=== PATIENT | male | born 1955 | race African-American/Black ===

== ENCOUNTER 2016-05-06 14:07 | Observation (INO) | payer OTHER ==
--- NOTE | 2016-05-06 17:13 | VASCULAR PRELIM REPORT ---
Provider Note Provider Note: Negative for DVT, discussed with Dr Sears at 1800.
[2016-05-06] MEDS: CLINDAMYCIN 600 MG/D5W RTU 600 MG/50 ML RTUPB IV SCH (17:23)
[2016-05-06 17:29] LABS: ABSOLUTE EOSINOPHILS # (AUTO) 0.1 10^3/uL (0.0-0.6); ABSOLUTE LYMPHOCYTES (AUTO) 1.1 10^3/uL (0.5-4.7); ABSOLUTE MONOCYTES (AUTO) 0.5 10^3/uL (0.1-1.4); ABSOLUTE NEUT (AUTO) 3.4 10^3/uL (1.7-8.2); BASOPHILS % (AUTO) 0.6 % (0-2); EOSINOPHILS % (AUTO) 2.2 % (0-6); HEMATOCRIT 34.5 % (37.9-51.0); HEMOGLOBIN 11.1 g/dL (13.5-17.0); HGB HCT DIFFERENCE -1.2; LYMPHOCYTES % (AUTO) 21.6 % (13-45); MEAN CORPUSCULAR HEMOGLOBIN 25.6 pg (27.0-33.4); MEAN CORPUSCULAR HGB CONC 32.3 g/dL (32.0-36.0); MEAN CORPUSCULAR VOLUME 79 fl (80-97); RED BLOOD COUNT 4.35 10^6/uL (4.35-5.55); RED CELL DISTRIBUTION WIDTH 15.1 % (11.5-14.0); SEGMENTED NEUTROPHILS % (AUTO) 66.6 % (42-78); WHITE BLOOD COUNT 5.1 10^3/uL (4.0-10.5)
[2016-05-06 17:41] LABS: ALANINE AMINOTRANSFERASE 35 U/L (21-72); ALBUMIN 3.7 g/dL (3.5-5.0); ALKALINE PHOSPHATASE 63 U/L (38-126); ANION GAP 10 (5-19); ASPARTATE AMINO TRANSFERASE 24 U/L (17-59); BILIRUBIN,TOTAL 0.4 mg/dL (0.2-1.3); BLOOD UREA NITROGEN 18 mg/dL (7-20); CALCIUM 9.8 mg/dL (8.4-10.2); CARBON DIOXIDE 28 mmol/L (22-30); CHLORIDE 102 mmol/L (98-107); CREATININE RESULT 0.95 mg/dL (0.52-1.25); GLUCOSE 84 mg/dL (75-110); POTASSIUM 4.3 mmol/L (3.6-5.0); SODIUM 140.2 mmol/L (137-145); TOTAL PROTEIN 7.1 g/dL (6.3-8.2)
[2016-05-06 18:07] LABS: ERYTHROCYTE SEDIMENTATION RATE 38 mm/hr (0-20)
--- NOTE | 2016-05-06 19:55 | PDOC H&P ---
History of Present Illness Admission Date/PCP: 05/06/16 14:07 MERCEDES WAITE MD History of Present Illness: JOVITA TYLER is a 60 year old male . He came to the office this afternoon because of pain and swelling of the right leg for the last couple of days. He waited to see me today in the office because he does not want to go to the emergency room, and wait for hours. When I saw him in the office today there was swelling and redness of the right leg that suggest cellulitis, but I could not completely rule out a DVT and because is a diabetic with extensive cellulitis of his right leg, I thought that he needed to be admitted at least for observation, he was admitted directly from the office into the hospital for management of his symptoms. A venous Doppler was done today and it was negative for deep vein thromboses. Past Medical History Cardiac Medical History: Reports: Hyperlipidema, Hypertension Endocrine Medical History: Reports: Diabetes Mellitus Type 2 GI Medical History: Reports: Hiatal Hernia Past Surgical History Past Surgical History: Reports: Herniorrhaphy, Orthopedic Surgery - C-spine surgery Social History Smoking Status: Never Smoker Frequency of Alcohol Use: None Hx Recreational Drug Use: No Drugs: None Hx Prescription Drug Abuse: No Family History Family History: Reviewed & Not Pertinent Parental Family History Reviewed: Yes Children Family History Reviewed: Yes Sibling(s) Family History Reviewed.: Yes Medication/Allergy Home Medications: Aspirin [Aspirin 81 mg Chewable Tablet] 81 mg PO DAILY 05/06/16 Carvedilol [Coreg 25 mg Tablet] 1 tab PO Q12 05/06/16 Glipizide [Glipizide ER] 2.5 mg PO BID 05/06/16 Loratadine 10 mg PO DAILY 05/06/16 Losartan/Hydrochlorothiazide [Hyzaar 100-25 Tablet] 1 each PO DAILY 05/06/16 Metformin HCl [Glucophage] 1,000 mg PO BID 05/06/16 Polyethylene Glycol 3350 [Miralax Powder 17 gm/Packet] 1 packet PO DAILY Simvastatin [Zocor 20 mg Tablet] 20 mg PO QHS 05/06/16 Allergies/Adverse Reactions: No Known Allergies Allergy (Verified 03/06/16 09:31) Review of Systems Constitutional: ABSENT: chills, fever(s), headache(s), weight gain, weight loss Eyes: ABSENT: visual disturbances Ears: ABSENT: hearing changes Cardiovascular: ABSENT: chest pain, dyspnea on exertion, edema, orthropnea, palpitations Respiratory: ABSENT: cough, hemoptysis Gastrointestinal: ABSENT: abdominal pain, constipation, diarrhea, hematemesis, hematochezia, nausea, vomiting Genitourinary: ABSENT: dysuria, hematuria Integumentary: ABSENT: rash, wounds Neurological: ABSENT: abnormal gait, abnormal speech, confusion, dizziness, focal weakness, syncope Psychiatric: ABSENT: anxiety, depression, homidical ideation, suicidal ideation Endocrine: ABSENT: cold intolerance, heat intolerance, menstrual abnormalities, polydipsia, polyuria Hematologic/Lymphatic: ABSENT: easy bleeding, easy bruising, lymphadenopathy Physical Exam Vital Signs: Temp Pulse Resp BP Pulse Ox 97.6 F 80 18 146/84 H 100 05/06/16 15:15 05/06/16 15:15 05/06/16 15:15 05/06/16 15:15 05/06/16 15:15 General appearance: PRESENT: no acute distress, well-developed, well-nourished Head exam: PRESENT: atraumatic, normocephalic Eye exam: PRESENT: conjunctiva pink, EOMI, PERRLA Ear exam: PRESENT: normal external ear exam Mouth exam: PRESENT: moist, tongue midline Respiratory exam: PRESENT: clear to auscultation wesley Cardiovascular exam: PRESENT: RRR, +S1, +S2 Pulses: PRESENT: normal dorsalis pedis pul, +2 pedal pulses bilateral Vascular exam: PRESENT: normal capillary refill GI/Abdominal exam: PRESENT: normal bowel sounds, soft Rectal exam: PRESENT: deferred Extremities exam: PRESENT: other - There is extensive redness swelling of the right leg Neurological exam: PRESENT: alert, awake, oriented to person, oriented to place , oriented to time, oriented to situation, CN II-XII grossly intact Psychiatric exam: PRESENT: appropriate affect, normal mood Skin exam: PRESENT: dry, intact, warm Results Laboratory Results: 05/06/16 17:15 05/06/16 17:15 05/06/16 05/06/16 17:15 17:15 WBC 5.1 RBC 4.35 Hgb 11.1 L Hct 34.5 L MCV 79 L MCH 25.6 L MCHC 32.3 RDW 15.1 H Plt Count 189 Seg Neutrophils % 66.6 Lymphocytes % 21.6 Monocytes % 9.0 Eosinophils % 2.2 Basophils % 0.6 Absolute Neutrophils 3.4 Absolute Lymphocytes 1.1 Absolute Monocytes 0.5 Absolute Eosinophils 0.1 Absolute Basophils 0.0 Sodium 140.2 Potassium 4.3 Chloride 102 Carbon Dioxide 28 Anion Gap 10 BUN 18 Creatinine 0.95 Est GFR ( Amer) > 60 Est GFR (Non-Af Amer) > 60 Glucose 84 Calcium 9.8 Total Bilirubin 0.4 AST 24 ALT 35 Alkaline Phosphatase 63 Total Protein 7.1 Albumin 3.7 Assessment & Plan - Diagnosis (1) Cellulitis of leg, right Is this a current diagnosis for this admission?: YesPlan: Patient is admitted into the hospital and he is started on intravenous antibiotic, clindamycin (2) Diabetes mellitus type 2 in nonobese Is this a current diagnosis for this admission?: Yes
[2016-05-06] MEDS ORDERED: DEXTROSE 40% GEL 15 GM TUBE PO PRN ×2 (19:57)
[2016-05-06] MEDS ORDERED: INSULIN LISPRO 100 UNIT/ML 3 ML VIAL SUBCUT PRN (19:57)
[2016-05-06] MEDS ORDERED: GLUCAGON,HUMAN RECOMB 1 MG INJ IM PRN (19:57)
[2016-05-06] MEDS ORDERED: DEXTROSE 50%-WATER 25 GM/50 ML DISP.SYRIN IV PRN ×2 (19:57)
[2016-05-06] MEDS ORDERED: CLINDAMYCIN 600 MG/D5W RTU 50 ML IV SCH (20:00)
[2016-05-06] MEDS ORDERED: (PENDING PHARMACY ID) (Carvedilol [Coreg 25 Mg Tablet] 1 TAB) PO SCH (20:00)
[2016-05-06] MEDS ORDERED: (PENDING PHARMACY ID) (Losartan/Hydrochlorothiazide [Hyzaar 100-25 Tablet] 1 EACH) PO SCH (20:00)
[2016-05-06 20:04] LABS: APPEARANCE,URINE CLEAR; BILIRUBIN,URINE NEGATIVE (NEGATIVE); GLUCOSE, URINE NEGATIVE (NEGATIVE); KETONES,URINE NEGATIVE (NEGATIVE); LEUKOCYTE ESTERASE,URINE NEGATIVE (NEGATIVE); NITRITE,URINE NEGATIVE (NEGATIVE); PROTEIN,URINE NEGATIVE (NEGATIVE); URINE SPECIFIC GRAVITY 1.015
[2016-05-06 20:19] LABS: PARTIAL THROMBOPLASTIN TIME 26.5 SEC (23.5-35.8)
[2016-05-06] MEDS ORDERED: LORATADINE 10 MG TABLET PO ONE (21:00)
[2016-05-06] MEDS ORDERED: GLIPIZIDE XL 2.5 MG TAB.ER.24 PO ONE (21:00)
[2016-05-06] MEDS ORDERED: POLYETHYLENE GLYCOL 3350 POWDER 17 GM/1 PACKET PO ONE (21:00)
[2016-05-06] MEDS ORDERED: ASPIRIN 81 MG TABLET, CHEWABLE PO ONE (22:00)
[2016-05-06] MEDS ORDERED: LOSARTAN POTASSIUM 50 MG TABLET PO ONE (22:00)
[2016-05-06] MEDS ORDERED: HYDROCHLOROTHIAZIDE 25 MG TABLET PO ONE (22:00)
[2016-05-06] MEDS: CARVEDILOL 12.5 MG TABLET PO SCH (22:19)
[2016-05-06] MEDS: SIMVASTATIN 10 MG TABLET PO SCH (23:09)
[2016-05-07] MEDS: CLINDAMYCIN 600 MG/D5W RTU 600 MG/50 ML RTUPB IV SCH ×5 (00:26→23:15)
[2016-05-07] MEDS: METFORMIN HCL 500 MG TABLET PO SCH ×2 (07:46→15:17)
[2016-05-07] MEDS: ENOXAPARIN SODIUM INJ 40 MG/0.4 ML DISP.SYRIN SUBCUT SCH (07:46)
--- NOTE | 2016-05-07 08:20 | Physician Advisory Note ---
Physician Advisor ProgressNote .: [facility], I have reviewed the medical record for this patient. Physician Advisor Statement: Possible documentation opportunities if attending agrees: 1. "chronic anemia, likely of nutritional Fe defic" (or chronic blood loss Fe defic, or ...) - Hgb 11.1 w/low MCV & high RDW. Status: 60yo with DM-2 & HTN came in with extensive RLE cellulitis, not already tx'd outpt & failing that. Afebrile, VSS except for mild HTN. No leukocytosis, A1C 7.6, ESR 38, glc's 80s-180s. Attending ordered IV Clinda, BC, ur cx, tele, venous dop. Appropriate for Outpt Obs, with expectation of likely prompt improvement with d/c home later today on po abx. If pt is clinically unsafe for d/c today, please document explicitly what keeps pt from being able to be managed outpt with close f/u, reasons that tx in inpatient hospital setting medically reasonable & necessary to protect pt's health, safety, & medical condition. Thanks for your help with documentation accuracy/specificity improvement! Cindy Grewal MD [facility] Physician Advisor, Fellow of Hospital Medicine
[2016-05-07] MEDS: CARVEDILOL 12.5 MG TABLET PO SCH ×2 (10:18→23:14)
[2016-05-07] MEDS: LOSARTAN POTASSIUM 50 MG TABLET PO SCH (10:19)
[2016-05-07] MEDS: ASPIRIN 81 MG TABLET, CHEWABLE PO SCH (10:20)
[2016-05-07] MEDS: HYDROCHLOROTHIAZIDE 25 MG TABLET PO SCH (10:20)
[2016-05-07] MEDS: LORATADINE 10 MG TABLET PO SCH (10:20)
[2016-05-07] MEDS: POLYETHYLENE GLYCOL 3350 POWDER 17 GM/1 PACKET PO SCH (10:21)
[2016-05-07] MEDS: GLIPIZIDE XL 2.5 MG TAB.ER.24 PO SCH ×2 (10:36→17:23)
--- NOTE | 2016-05-07 13:44 | XCELERA REPORT ---
[address] [address] Lower Extremity Venous Evaluation Name: JOVITA TYLER Age: 60 yrs Gender: Male : 1955 Patient Status: Inpatient Patient Location: \S\[facility]\S\A Study Date: 05/06/2016 04:51 PM Procedure: Color flow and duplex imaging of the veins of the right lower extremity as well as the left Common Femoral vein. Reason For Study: Cellulitis / swelling of the right leg r/o DVT Ordering Physician: MERCEDES WAITE Performed By: Francis Betts Right Sided Venous Evaluation Normal vessel filling wall to wall, compression and augmentation as well as Colour flow down to the infrageniculate veins. Left Sided Venous Evaluation The left common femoral vein is fully compressible. Spontaneous and phasic flow is present in the left common femoral vein. Critical Findings Per preliminary report. Interpretation Summary No duplex evidence of DVT or obstruction in the right lower extremity nor in the left Common Femoral vein. : MERCEDES WAITE > Tyree Zuñiga
--- NOTE | 2016-05-07 18:08 | PDOC DISCHARGE SUMMARY ---
General - Admit/Disc Date/PCP Admission Date/Primary Care Provider: 05/06/16 14:07 MERCEDES WAITE MD Discharge Date: 05/07/16 - Discharge Diagnosis (1) Cellulitis of leg, right Is this a current diagnosis for this admission?: Yes (2) Diabetes mellitus type 2 in nonobese Is this a current diagnosis for this admission?: Yes - Additional Information Discharge Diet: Diabetic Discharge Activity: Activity As Tolerated Home Medications: Aspirin [Aspirin 81 mg Chewable Tablet] 81 mg PO DAILY 05/06/16 Carvedilol [Coreg 25 mg Tablet] 1 tab PO Q12 05/06/16 Glipizide [Glipizide ER] 2.5 mg PO BID 05/06/16 Loratadine 10 mg PO DAILY 05/06/16 Losartan/Hydrochlorothiazide [Hyzaar 100-25 Tablet] 1 each PO DAILY 05/06/16 Metformin HCl [Glucophage] 1,000 mg PO BID 05/06/16 Polyethylene Glycol 3350 [Miralax Powder 17 gm/Packet] 1 packet PO DAILY Simvastatin [Zocor 20 mg Tablet] 20 mg PO QHS 05/06/16 Clindamycin HCl 300 mg PO Q8H #21 capsule 05/07/16 Hospital Course Hospital Course: Patient was admitted because of swelling, redness of the right lower extremity consistent with cellulitis that was a concern for deep vein thrombosis, venous Doppler was done and it was negative for DVT thrombosis. he was treated with IV antibiotic, clindamycin 6 MG IV every 8 Hhours There is improvement in patient's symptoms. The plan is for him to be discharged home, he was brought in for observation and management. Physical Exam Vital Signs: Temp Pulse Resp BP Pulse Ox 97.5 F 79 17 132/74 H 100 05/07/16 16:06 05/07/16 16:06 05/07/16 16:06 05/07/16 16:06 05/07/16 16:06 Intake & Output 05/06/16 05/07/16 05/08/16 06:59 06:59 06:59 Intake Total 640 1050 Output Total 300 Balance 340 1050 Weight 136.7 kg General appearance: PRESENT: no acute distress Eye exam: PRESENT: PERRLA Respiratory exam: PRESENT: clear to auscultation wesley Cardiovascular exam: PRESENT: +S1, +S2 GI/Abdominal exam: PRESENT: soft Extremities exam: PRESENT: other - There is improvement of the erythema of the right leg Neurological exam: PRESENT: alert, CN II-XII grossly intact Results Laboratory Results: 05/06/16 17:15 05/06/16 17:15 05/06/16 05/06/16 17:15 19:48 WBC 5.1 RBC 4.35 Hgb 11.1 L Hct 34.5 L MCV 79 L MCH 25.6 L MCHC 32.3 RDW 15.1 H Plt Count 189 Seg Neutrophils % 66.6 Lymphocytes % 21.6 Monocytes % 9.0 Eosinophils % 2.2 Basophils % 0.6 Absolute Neutrophils 3.4 Absolute Lymphocytes 1.1 Absolute Monocytes 0.5 Absolute Eosinophils 0.1 Absolute Basophils 0.0 Urine Color YELLOW Urine Appearance CLEAR Urine pH 5.0 Ur Specific Dexter 1.015 Urine Protein NEGATIVE Urine Glucose (UA) NEGATIVE Urine Ketones NEGATIVE Urine Blood NEGATIVE Urine Nitrite NEGATIVE Ur Leukocyte Esterase NEGATIVE Urine WBC (Auto) 0 Urine RBC (Auto) 1
[2016-05-07] MEDS: SIMVASTATIN 10 MG TABLET PO SCH (23:14)
[2016-05-08] MEDS: CLINDAMYCIN 600 MG/D5W RTU 600 MG/50 ML RTUPB IV SCH ×2 (06:32→12:01)
[2016-05-08] MEDS: METFORMIN HCL 500 MG TABLET PO SCH (08:42)
[2016-05-08] MEDS: ENOXAPARIN SODIUM INJ 40 MG/0.4 ML DISP.SYRIN SUBCUT SCH (08:42)
[2016-05-08] MEDS: LOSARTAN POTASSIUM 50 MG TABLET PO SCH (10:59)
[2016-05-08] MEDS: GLIPIZIDE XL 2.5 MG TAB.ER.24 PO SCH (10:59)
[2016-05-08] MEDS: CARVEDILOL 12.5 MG TABLET PO SCH (10:59)
[2016-05-08] MEDS: ASPIRIN 81 MG TABLET, CHEWABLE PO SCH (11:00)
[2016-05-08] MEDS: HYDROCHLOROTHIAZIDE 25 MG TABLET PO SCH (11:00)
[2016-05-08] MEDS: LORATADINE 10 MG TABLET PO SCH (11:00)
[2016-05-08] MEDS: POLYETHYLENE GLYCOL 3350 POWDER 17 GM/1 PACKET PO SCH (11:01)
[2016-05-08 12:43] VITALS: BP 137/79
== END 2016-05-08 16:50 | disposition home or self-care (01) ==
LOC: 4N 14:07
PROVIDERS: ADMIT Internal Medicine; ATTEND Internal Medicine
DX: L03.115 Cellulitis of right lower limb (principal); E11.9 Type 2 diabetes mellitus without complications; I10 Essential (primary) hypertension; E78.5 Hyperlipidemia, unspecified; Z79.84 Long term (current) use of oral hypoglycemic drugs
CPT/HCPCS: 36415; 87040; 87086; 82962 ×3; 85025; 85652; 85610; 85730; 80076; 80048; 81001; 83036; 93971 ×2; G0378 ×3; G0379; J3490 ×4; J1650 ×2

== ENCOUNTER 2016-06-21 22:39 | Observation (INO) | payer OTHER ==
--- NOTE | 2016-06-22 01:54 | ER Document Report ---
ED General - General Chief Complaint: Chest Pain Stated Complaint: CHEST PAIN Notes: Patient is a 60-year-old male who presents with complaint of intermittent chest pain. Says it's been ongoing for 2 days. He took 322 mg of aspirin before coming into the ER. He says that he does not have a history coronary disease. He had a stress test proximal me 2 years ago. He is followed by Dr. Sears. He says over last 2 days he still develops chest pain whenever he walks and exerts himself. This pain is nonradiating. He does feel short of breath when he gets the chest pain. When he sits down the chest pain goes away. He does have a history of hypertension, diabetes, obesity. He is currently chest pain- free being that he is at rest in the stretcher. No other complaints at this time. TRAVEL OUTSIDE OF THE [place] IN LAST 30 DAYS: No - Related Data Allergies/Adverse Reactions: No Known Allergies Allergy (Verified 03/06/16 09:31) Past Medical History - Social History Smoking Status: Never Smoker Frequency of alcohol use: None Drug Abuse: None Family History: Reviewed & Not Pertinent Patient has suicidal ideation: No Patient has homicidal ideation: No - Past Medical History Cardiac Medical History: Reports: Hx Hypercholesterolemia, Hx Hypertension Endocrine Medical History: Reports: Hx Diabetes Mellitus Type 2 Renal/ Medical History: Denies: Hx Peritoneal Dialysis GI Medical History: Reports: Hx Hiatal Hernia Past Surgical History: Reports: Hx Herniorrhaphy, Hx Orthopedic Surgery - C- spine surgery - Immunizations Hx Diphtheria, Pertussis, Tetanus Vaccination: Yes Hx Pneumococcal Vaccination: 08/21/13 Review of Systems - Review of Systems Notes: My Normal Review Basic REVIEW OF SYSTEMS: CONSTITUTIONAL : Denies fever, chills, or sweats. Denies recent illness. EENT: Denies eye, ear, throat, or mouth pain or symptoms. Denies nasal or sinus congestion. CARDIOVASCULAR: Had chest pain RESPIRATORY: Denies cough, cold, or chest congestion. Denies shortness of breath, difficulty breathing, or wheezing. SKIN: Denies rash or skin lesions. HEMATOLOGIC : Denies easy bruising or bleeding. NEUROLOGICAL: Denies altered mental status or loss of consciousness. Denies headache. Denies weakness or paralysis or loss of use of either side. Denies problems with gait or speech. Denies sensory or motor loss. ALL OTHER SYSTEMS REVIEWED AND NEGATIVE. Physical Exam - Vital signs Vitals: Temp Pulse Resp BP Pulse Ox 97.4 F 77 18 129/77 H 96 06/21/16 22:58 06/21/16 22:58 06/21/16 22:58 06/21/16 22:58 06/21/16 22:58 - Notes Notes: General Appearance: Well nourished, alert, cooperative, no acute distress, no obvious discomfort. Well-appearing. Vitals: reviewed, See vital signs table. Head: no swelling or tenderness to the head Eyes: PERRL, EOMI, Conjuctiva clear Mouth: No decreasd moisture Neck: Supple, no neck tenderness, No thyromegaly Lungs: No wheezing, No rales, No rhonci, No accessory muscle use, good air exchange bilaterally. Heart: Normal rate, Regular rythm, No murmur, no rub Chest wall: No reproducible tenderness to palpation of the chest wall. Abdomen: Normal BS, soft, No rigidity, No abdominal tenderness, No guarding, no rebound, no abdominal masses, no organomegaly Extremities: strength 5/5 in all extremities, good pulses in all extremities, no swelling or tenderness in the extremities, no edema. Skin: warm, dry, appropriate color, no rash Neuro: speech clear, oriented x 3, normal affect, responds appropriately to questions. Course - Vital Signs Vital signs: Temp Pulse Resp BP Pulse Ox 97.4 F 77 18 129/77 H 96 06/21/16 22:58 06/21/16 22:58 06/21/16 22:58 06/21/16 22:58 06/21/16 22:58 - Laboratory Result Diagrams: 06/22/16 02:30 06/22/16 02:30 Laboratory results interpreted by me: 06/22/16 06/22/16 02:30 02:30 Hgb 11.2 L Hct 34.6 L MCV 79 L MCH 25.6 L RDW 15.3 H Glucose 160 H Creatine Kinase 200 H - EKG Interpretation by Me Additional EKG results interpreted by me: 06/22/16 01:53 EKG is reviewed and interpreted by me. EKG shows normal sinus rhythm with rate of [address] segment elevation or depression. No ischemic T wave inversions. HI interval, QRS duration, QTC was are within normal range. Old EKG for comparison is from 03/05/2016. - Transfer of Care Notes: 06/22/16 03:17 Patient continues to be chest pain-free at rest. I'm concerned the fact that he 's had worsening for some chest pain over last 2 days and he did require nitroglycerin by the ambulance to take with chest pain. He also received aspirin at that time. He does have multiple risk factors. I did speak with Dr. Lee who is covering for Dr. Sears. He agrees to accept the patient on behalf Dr. Sears. Discharge - Discharge Clinical Impression: Chest pain Qualifiers: Chest pain type: unspecified Qualified Code(s): R07.9 - Chest pain, unspecified Condition: Stable Disposition: ADMITTED OBSERVATION Admitting Provider: [facility] Admitted: Telemetry
[2016-06-22 02:48] LABS: ABSOLUTE EOSINOPHILS # (AUTO) 0.1 10^3/uL (0.0-0.6); ABSOLUTE LYMPHOCYTES (AUTO) 1.3 10^3/uL (0.5-4.7); ABSOLUTE MONOCYTES (AUTO) 0.5 10^3/uL (0.1-1.4); ABSOLUTE NEUT (AUTO) 3.4 10^3/uL (1.7-8.2); BASOPHILS % (AUTO) 0.6 % (0-2); EOSINOPHILS % (AUTO) 1.9 % (0-6); HEMATOCRIT 34.6 % (37.9-51.0); HEMOGLOBIN 11.2 g/dL (13.5-17.0); LYMPHOCYTES % (AUTO) 24.6 % (13-45); MEAN CORPUSCULAR HEMOGLOBIN 25.6 pg (27.0-33.4); MEAN CORPUSCULAR HGB CONC 32.5 g/dL (32.0-36.0); MEAN CORPUSCULAR VOLUME 79 fl (80-97); MONOCYTES % (AUTO) 9.6 % (3-13); RED BLOOD COUNT 4.39 10^6/uL (4.35-5.55); RED CELL DISTRIBUTION WIDTH 15.3 % (11.5-14.0); SEGMENTED NEUTROPHILS % (AUTO) 63.3 % (42-78); WHITE BLOOD COUNT 5.4 10^3/uL (4.0-10.5)
[2016-06-22 02:53] LABS: ALANINE AMINOTRANSFERASE 39 U/L (21-72); ALKALINE PHOSPHATASE 69 U/L (38-126); ANION GAP 14 (5-19); ASPARTATE AMINO TRANSFERASE 20 U/L (17-59); BILIRUBIN,DIRECT 0.3 mg/dL (0.0-0.4); BILIRUBIN,TOTAL 0.5 mg/dL (0.2-1.3); BLOOD UREA NITROGEN 16 mg/dL (7-20); CALCIUM 9.4 mg/dL (8.4-10.2); CARBON DIOXIDE 26 mmol/L (22-30); CHLORIDE 104 mmol/L (98-107); CREATINE KINASE 200 U/L (55-170); CREATININE RESULT 0.85 mg/dL (0.52-1.25); GLUCOSE 160 mg/dL (75-110); POTASSIUM 3.8 mmol/L (3.6-5.0); SODIUM 143.5 mmol/L (137-145)
[2016-06-22 03:05] LABS: CREATINE KINASE MB 1.55 ng/mL (<4.55); TROPONIN I < 0.012 ng/mL
--- NOTE | 2016-06-22 06:12 | EKG REPORT ---
SEVERITY:- ABNORMAL ECG - SINUS RHYTHM LEFT VENTRICULAR HYPERTROPHY : Confirmed by: Brianna Roman 22-Jun-2016 06:11:42
[2016-06-22] MEDS ORDERED: GLUCAGON,HUMAN RECOMB 1 MG INJ IM PRN (09:38)
[2016-06-22] MEDS ORDERED: DEXTROSE 50%-WATER 25 GM/50 ML DISP.SYRIN IV PRN ×2 (09:38)
[2016-06-22] MEDS ORDERED: DEXTROSE 40% GEL 15 GM TUBE PO PRN ×2 (09:38)
[2016-06-22] MEDS ORDERED: LOSARTAN PO SCH (10:00)
[2016-06-22] MEDS ORDERED: (PENDING PHARMACY ID) (Carvedilol [Carvedilol] 25 MG) PO SCH (10:00)
[2016-06-22] MEDS ORDERED: HYDROCHLOROTHIAZIDE PO SCH (10:00)
[2016-06-22 10:50] LABS: PROTHROMBIN TIME 13.3 SEC (11.4-15.4)
[2016-06-22 11:11] LABS: CREATINE KINASE MB 1.36 ng/mL (<4.55)
[2016-06-22] MEDS: NORMAL SALINE 1000 ML 1,000 ML IV PRN (11:16)
[2016-06-22 11:17] LABS: TROPONIN I < 0.012 ng/mL
[2016-06-22] MEDS ORDERED: ASPIRIN 81 MG TABLET, CHEWABLE PO ONE (11:30)
[2016-06-22] MEDS ORDERED: CARVEDILOL 12.5 MG TABLET PO ONE (11:30)
[2016-06-22] MEDS ORDERED: LANSOPRAZOLE 30 MG TAB.RAP.DR PO ONE (11:30)
[2016-06-22] MEDS ORDERED: LOSARTAN POTASSIUM 50 MG TABLET PO ONE (12:00)
[2016-06-22] MEDS ORDERED: HYDROCHLOROTHIAZIDE 25 MG TABLET PO ONE (12:00)
[2016-06-22] MEDS: INSULIN LISPRO 100 UNIT/ML 3 ML VIAL SUBCUT PRN ×2 (12:06→18:29)
--- NOTE | 2016-06-22 13:11 | PDOC H&P ---
History of Present Illness Admission Date/PCP: 06/22/16 09:34 MERCEDES WAITE MD Patient complains of: Chest pain History of Present Illness: JOVITA TYLER is a 60 year old male patient of Dr Waite who presented to the ED with complaint of intermittent chest pain over last 2 days. He reported that pain is related to exertion and resolve with rest. There is associated shortness of breath with exertional chest pain. No palpitation, diaphoresis, nausea, vomiting or radiation f pain to other part of his body. Patient denied illicit drug usage. He denied cigarette smoking or alcohol abuse. There is comorbidities including hypertension, diabetes mellitus type 2 and obesity. His initial ED evaluation was unrevealing as to cardiac source for his pain. Patient reported completion of stress test about 2 years ago without any significant findings. There is no significant family history of cardiovascular disease. Past Medical History Cardiac Medical History: Reports: Hyperlipidema, Hypertension Endocrine Medical History: Reports: Diabetes Mellitus Type 2 GI Medical History: Reports: Hiatal Hernia Psychiatric Medical History: Denies: Depression Past Surgical History Past Surgical History: Reports: Herniorrhaphy, Orthopedic Surgery - C-spine surgery Social History Smoking Status: Never Smoker Frequency of Alcohol Use: None Hx Recreational Drug Use: No Drugs: None Hx Prescription Drug Abuse: No - Advance Directive Resuscitation Status: Full Code Family History Family History: Reviewed & Not Pertinent Parental Family History Reviewed: Yes Children Family History Reviewed: Yes Sibling(s) Family History Reviewed.: Yes Medication/Allergy Home Medications: Aspirin [Aspirin] 81 mg PO DAILY 06/22/16 Carvedilol [Carvedilol] 25 mg PO BID 06/22/16 Glipizide [Glipizide ER] 2.5 mg PO BID 06/22/16 Losartan/Hydrochlorothiazide [Hyzaar 100-25 Tablet] 100 mg PO DAILY 06/22/16 Metformin HCl [Glucophage] 1,000 mg PO BID 06/22/16 Simvastatin [Simvastatin] 20 mg PO QHS 06/22/16 Allergies/Adverse Reactions: No Known Allergies Allergy (Verified 03/06/16 09:31) Physical Exam Vital Signs: Temp Pulse Resp BP Pulse Ox 97.6 F 77 9 L 158/85 H 96 06/22/16 12:32 06/21/16 22:58 06/22/16 06:00 06/22/16 10:06 06/22/16 12:01 General appearance: PRESENT: no acute distress, well-developed, well-nourished Head exam: PRESENT: atraumatic, normocephalic Eye exam: PRESENT: conjunctiva pink, EOMI, PERRLA. ABSENT: scleral icterus Ear exam: PRESENT: normal external ear exam Mouth exam: PRESENT: moist, tongue midline Neck exam: PRESENT: full ROM. ABSENT: carotid bruit, JVD, lymphadenopathy, thyromegaly Respiratory exam: PRESENT: clear to auscultation wesley Cardiovascular exam: PRESENT: RRR. ABSENT: diastolic murmur, rubs, systolic murmur Pulses: PRESENT: normal dorsalis pedis pul, +2 pedal pulses bilateral Vascular exam: PRESENT: normal capillary refill GI/Abdominal exam: PRESENT: normal bowel sounds, soft. ABSENT: distended, guarding, mass, organolmegaly, rebound, tenderness Extremities exam: PRESENT: full ROM Musculoskeletal exam: PRESENT: ambulatory, normal inspection Neurological exam: PRESENT: alert, awake, oriented to person, oriented to place , oriented to time, oriented to situation, CN II-XII grossly intact. ABSENT: motor sensory deficit Psychiatric exam: PRESENT: appropriate affect, normal mood. ABSENT: homicidal ideation, suicidal ideation Skin exam: PRESENT: dry, intact, warm. ABSENT: cyanosis, rash Results Laboratory Results: 06/22/16 06/22/16 10:24 10:24 Creatine Kinase 148 CK-MB (CK-2) 1.36 Troponin I < 0.012 Impressions: Chest X-Ray 06/22/16 02:10 IMPRESSION: NO ACUTE RADIOGRAPHIC FINDING IN THE CHEST. Assessment & Plan - Diagnosis (1) Diabetes mellitus type 2 in obese Is this a current diagnosis for this admission?: YesPlan: See covering admitting physician orders. (2) HTN (hypertension) Qualifiers: Hypertension type: essential hypertension Qualified Code(s): I10 - Essential (primary) hypertension Is this a current diagnosis for this admission?: YesPlan: See covering admitting physician orders. (3) Obesity (BMI 30-39.9) Is this a current diagnosis for this admission?: YesPlan: See covering admitting physician orders. (4) Chest pain Qualifiers: Chest pain type: unspecified Qualified Code(s): R07.9 - Chest pain, unspecified Is this a current diagnosis for this admission?: YesPlan: See covering admitting physician orders. - Time Time Spent: 50 to 70 Minutes Medications reviewed and adjusted accordingly: Yes Anticipated discharge: Home Within: within 48 hours - Plan Summary Plan Summary: See covering admitting physician orders.
[2016-06-22 16:28] LABS: CREATINE KINASE MB 1.51 ng/mL (<4.55)
[2016-06-22 16:32] LABS: TROPONIN I < 0.012 ng/mL
[2016-06-22] MEDS: GLIPIZIDE XL 2.5 MG TAB.ER.24 PO SCH (18:25)
[2016-06-22] MEDS: METFORMIN HCL 500 MG TABLET PO SCH (18:25)
[2016-06-22] MEDS: CARVEDILOL 12.5 MG TABLET PO SCH (21:01)
[2016-06-22] MEDS ORDERED: (PENDING PHARMACY ID) (Simvastatin [Simvastatin] 20 MG) PO SCH (22:00)
[2016-06-22] MEDS ORDERED: SIMVASTATIN 10 MG TABLET PO SCH (22:00)
[2016-06-22 22:24] LABS: CREATINE KINASE MB 1.49 ng/mL (<4.55)
[2016-06-22 22:28] LABS: TROPONIN I < 0.012 ng/mL
[2016-06-23] MEDS: NORMAL SALINE 1000 ML 1,000 ML IV PRN (04:03)
[2016-06-23] MEDS ORDERED: LANSOPRAZOLE 30 MG TAB.RAP.DR PO SCH (06:00)
[2016-06-23 06:42] LABS: CHOLESTEROL 178.24 mg/dL (0-200); Direct HDL 41 mg/dL (>40); TRIGLYCERIDES 102 mg/dL (<150)
[2016-06-23 06:53] LABS: DIRECT LDL 97 mg/dL (<100)
[2016-06-23] MEDS ORDERED: ENOXAPARIN SODIUM INJ 40 MG/0.4 ML DISP.SYRIN SUBCUT SCH (08:00)
[2016-06-23] MEDS: METFORMIN HCL 500 MG TABLET PO SCH (08:31)
[2016-06-23] MEDS: GLIPIZIDE XL 2.5 MG TAB.ER.24 PO SCH (08:31)
[2016-06-23] MEDS: INSULIN LISPRO 100 UNIT/ML 3 ML VIAL SUBCUT PRN (08:31)
[2016-06-23] MEDS ORDERED: ASPIRIN 81 MG TABLET, CHEWABLE PO SCH (10:00)
[2016-06-23] MEDS ORDERED: HYDROCHLOROTHIAZIDE 25 MG TABLET PO SCH (10:00)
[2016-06-23] MEDS ORDERED: LOSARTAN POTASSIUM 50 MG TABLET PO SCH (10:00)
[2016-06-23] MEDS: CARVEDILOL 12.5 MG TABLET PO SCH (10:12)
--- NOTE | 2016-06-23 10:54 | PDOC DISCHARGE SUMMARY ---
General - Admit/Disc Date/PCP Admission Date/Primary Care Provider: 06/22/16 09:34 MERCEDES WAITE MD Discharge Date: 06/23/16 - Discharge Diagnosis (1) Diabetes mellitus type 2 in obese Is this a current diagnosis for this admission?: Yes (2) HTN (hypertension) Is this a current diagnosis for this admission?: Yes (3) Obesity (BMI 30-39.9) Is this a current diagnosis for this admission?: Yes (4) Chest pain Is this a current diagnosis for this admission?: YesSummary: Most likely due to GERD or PUD related. (5) Chest pain, non-cardiac Is this a current diagnosis for this admission?: YesSummary: D/C home on Omeprazole 40 mg p.o daily fasting. - Additional Information Resuscitation Status: Full Code Discharge Diet: Cardiac, Diabetic Discharge Activity: Activity As Tolerated Home Medications: Aspirin 81 mg PO DAILY 06/22/16 Carvedilol 25 mg PO BID 06/22/16 Glipizide [Glipizide ER] 2.5 mg PO BID 06/22/16 Losartan/Hydrochlorothiazide [Hyzaar 100-25 Tablet] 100 mg PO DAILY 06/22/16 Metformin HCl [Glucophage] 1,000 mg PO BID 06/22/16 Simvastatin 20 mg PO QHS 06/22/16 Omeprazole 40 mg PO DAILY #30 capsule. 06/23/16 History of Present Illness History of Present Illness: JOVITA TYLER is a 60 year old male patient of Dr Waite who presented to the ED with complaint of intermittent chest pain over last 2 days. He reported that pain is related to exertion and resolve with rest. There is associated shortness of breath with exertional chest pain. No palpitation, diaphoresis, nausea, vomiting or radiation f pain to other part of his body. Patient denied illicit drug usage. He denied cigarette smoking or alcohol abuse. There is comorbidities including hypertension, diabetes mellitus type 2 and obesity. His initial ED evaluation was unrevealing as to cardiac source for his pain. Patient reported completion of stress test about 2 years ago without any significant findings. There is no significant family history of cardiovascular disease. Hospital Course Hospital Course: Patient remain pain free during his hospital stay. serial cardiac enzymes were negative for cardiac source of chest pain. He will be discharge home on PPI with instruction to avoid spicy food and precipitating lifestyle. he will call his PCP office for follow up and consideration of further evaluation on outpatient basis. Physical Exam Vital Signs: Temp Pulse Resp BP Pulse Ox 97.8 F 71 19 129/88 H 98 06/23/16 07:41 06/23/16 07:41 06/23/16 07:41 06/23/16 07:41 06/23/16 07:41 Intake & Output 06/22/16 06/23/16 06/24/16 06:59 06:59 06:59 Intake Total 1790 Output Total 1000 Balance 790 Weight 139.4 kg General appearance: PRESENT: no acute distress, obese, well-developed, well- nourished Head exam: PRESENT: atraumatic, normocephalic Eye exam: PRESENT: conjunctiva pink, EOMI, PERRLA. ABSENT: scleral icterus Respiratory exam: PRESENT: clear to auscultation wesley Cardiovascular exam: PRESENT: RRR. ABSENT: diastolic murmur, rubs, systolic murmur GI/Abdominal exam: PRESENT: normal bowel sounds, soft. ABSENT: distended, guarding, mass, organolmegaly, rebound, tenderness Musculoskeletal exam: PRESENT: deformity - realted to joint involvement with arthritis Neurological exam: PRESENT: alert, awake, oriented to person, oriented to place , oriented to time, oriented to situation, CN II-XII grossly intact. ABSENT: motor sensory deficit Psychiatric exam: PRESENT: appropriate affect, normal mood. ABSENT: homicidal ideation, suicidal ideation Skin exam: PRESENT: dry, intact, warm. ABSENT: cyanosis, rash Results Laboratory Results: 06/23/16 06:03 Triglycerides 102 Cholesterol 178.24 LDL Cholesterol Direct 97 VLDL Cholesterol 20.0 HDL Cholesterol 41 06/22/16 06/22/16 06/22/16 10:24 10:24 15:38 Creatine Kinase 148 161 CK-MB (CK-2) 1.36 Troponin I < 0.012 06/22/16 06/22/16 06/22/16 15:38 21:47 21:47 Creatine Kinase 158 CK-MB (CK-2) 1.51 1.49 Troponin I < 0.012 < 0.012 Impressions: Chest X-Ray 06/22/16 02:10 IMPRESSION: NO ACUTE RADIOGRAPHIC FINDING IN THE CHEST. Qualifiers PATEINT BEING DISCHARGED WITH ANY OF THE FOLLOWING DIAGNOSIS?: No Plan Discharge Plan: See covering attending physician orders. Time Spent: Less than 30 Minutes
[2016-06-23 11:00] VITALS: BP 112/77
== END 2016-06-23 13:34 | disposition home or self-care (01) ==
LOC: ER 22:39 → EH 06-22 03:29 → UNDOADMOB 06-22 03:29 → EH 06-22 09:34 → 4S 06-22 12:53
PROVIDERS: ADMIT Internal Medicine; ATTEND Internal Medicine
DX: R07.89 Other chest pain (principal); E11.9 Type 2 diabetes mellitus without complications; E66.9 Obesity, unspecified; I10 Essential (primary) hypertension; E78.5 Hyperlipidemia, unspecified; Z98.890 Other specified postprocedural states; Z87.19 Personal history of other diseases of the digestive system; Z79.84 Long term (current) use of oral hypoglycemic drugs; Z79.82 Long term (current) use of aspirin; Z79.899 Other long term (current) drug therapy; Z68.37 Body mass index [BMI] 37.0-37.9, adult
CPT/HCPCS: 93005; 99285; 36415 ×2; 82553; 82962 ×2; 82550; 85025; 85610; 85730; 80053; 84484; 83036; 80061; 71010; 93010; G0378 ×3; J3490 ×2; J1815 ×2; J1650; J7030 ×2

== ENCOUNTER → 2018-03-13 | Outpatient (CLI) | payer OTHER ==
--- NOTE | 2018-03-13 12:53 | RADIOLOGY REPORT (SQ) ---
EXAM DESCRIPTION: KNEE RIGHT 2 VIEWS COMPLETED DATE/TIME: 03/13/2018 11:36 am REASON FOR STUDY: PAIN IN RT KNEE M25.561 PAIN IN RIGHT KNEE COMPARISON: None. NUMBER OF VIEWS: Two views. TECHNIQUE: AP and lateral radiographic images acquired of the right knee. LIMITATIONS: None. FINDINGS: MINERALIZATION: Normal. BONES: No acute fracture or dislocation. No worrisome bone lesions. JOINT: Joint space narrowing and osteophyte formation medial and patellofemoral compartments. SOFT TISSUES: No soft tissue swelling. No radio-opaque foreign body. OTHER: No other significant finding. IMPRESSION: Osteoarthritis. TECHNICAL DOCUMENTATION: JOB ID: [id number] [employer]- All Rights Reserved Reading location - IP/workstation name: [email or web address]
== END ==
LOC: OD 11:21
PROVIDERS: ATTEND Internal Medicine
DX: M25.561 Pain in right knee (principal); M17.11 Unilateral primary osteoarthritis, right knee